=== PATIENT | female | born 1995 | race African-American/Black ===

== ENCOUNTER 2017-02-23 03:15 | Emergency (ER) | payer OTHER ==
[~2017-02-23] VITALS: Ht 177.8 cm; Wt 75.7 kg
[2017-02-23] MEDS ORDERED: ADV100INH INH (03:34)
[2017-02-23] MEDS ORDERED: ALBU17IN2 INH (03:34)
[2017-02-23] MEDS ORDERED: ONDANSETRON 4MG/2ML VIAL (J2405) IV ONE (05:15)
[2017-02-23] MEDS ORDERED: NS 1,000 ML IV ONE (05:15)
[2017-02-23 05:23] LABS: ANION GAP 9 MEQ/L (8-16); BASO % 0.4 % (0.0-1.0); BLOOD UREA NITROGEN 14 MG/DL (7-18); CALCIUM LEVEL 8.9 MG/DL (8.5-10.1); CARBON DIOXIDE LEVEL 25 MEQ/L (21-32); CHLORIDE LEVEL 110 MEQ/L (98-107); CREATININE FOR GFR 0.91 MG/DL (0.55-1.02); EOS # 0.2 K/mm3 (0.0-0.50); GLOMERULAR FILTRATION RATE > 60.0 (>60); GLUCOSE, FASTING 112 MG/DL (70-105); LARGE UNSTAINED CELL # 0.3 K/mm3 (0.0-0.4); LARGE UNSTAINED CELL % 2.9 % (0.0-4.0); LYMPH # 3.3 K/mm3 (1.5-6.5); LYMPH % 35.6 % (24.0-44.0); MEAN CORPUSCULAR HEMOGLOBIN 30.1 pg (27.0-33.0); MONO # 0.5 K/mm3 (0.0-0.8); MONO % 6.2 % (0.0-5.0); NEUTROPHILS # 4.6 K/mm3 (1.8-7.7); NEUTROPHILS % 52.9 % (36.0-66.0); PLATELET COUNT, AUTOMATED 287 k/mm3 (150-450); POTASSIUM SERUM 3.8 MEQ/L (3.5-5.1); RED CELL DISTRIBUTION WIDTH 12.1 % (11.5-14.5); SODIUM LEVEL 144 MEQ/L (136-145); WHITE BLOOD COUNT 8.6 K/mm3 (4.0-10.0)
[2017-02-23 08:19] VITALS: BP 107/59
--- NOTE | 2017-02-23 10:31 | REP ---
AP PORTABLE SEATED CHEST: 02/23/2017. Clinical history: Dyspnea. Findings: There were no prior studies. The lung meza are adequately inflated. The CP angles sharply defined without effusion. There is no definite infiltrate. The cardiomediastinal silhouette is normal for projection. There is no pulmonary edema or definite infiltrate. No pneumothorax or pneumomediastinum. The aorta, airway and mediastinal contours are normal. Bones intact. Impression: 1. No acute cardiopulmonary change. Signed by Alejo Tamayo MD 02/23/2017 10:56 A
== END 2017-02-23 08:24 | disposition home or self-care (01) ==
LOC: M ED 07:49
DX: J45.20 Mild intermittent asthma, uncomplicated (principal); F10.120 Alcohol abuse with intoxication, uncomplicated; Z79.899 Other long term (current) drug therapy
CPT/HCPCS: 36415; 71010; 80048; 85025; 96361; 96374; 99282; G0480; J2405

== ENCOUNTER → 2017-04-30 | Outpatient (REF) | payer OTHER ==
[~2017-04-30] MED LIST: ADV100INH INH; ALBU17IN2 INH
[2017-05-10 08:07] LABS: D001-IgE D pteronyssinus <0.10 kU/L (Class 0); E001-IgE Cat Epith/Dander < 0.10 kU/L (Class 0); M001-IgE Penicillium chrysogen < 0.10 kU/L (Class 0); M002 IgE Cladosporium herbaru < 0.10 kU/L (Class 0); M003 IgE Aspergillus fumigatu < 0.10 kU/L (Class 0); M006-IgE Alternaria alternata < 0.10 kU/L (Class 0); T003-IgE Common Silver Birch 0.85 kU/L (Class II); T007-IgE Oak, White 1.11 kU/L (Class II); T008-IgE Elm, American 1.22 kU/L (Class II); W001-IgE Ragweed, Short 1.31 kU/L (Class II); W009-IgE Plantain, English 1.41 kU/L (Class III); W014-IgE Pigweed, Rough 1.12 kU/L (Class II); W018-IgE Sheep Sorrel 1.92 kU/L (Class III)
== END ==
LOC: M LAB REF 13:34
PROVIDERS: ATTEND Nurse Practitioner Adult Health
DX: J45.40 Moderate persistent asthma, uncomplicated (principal)

== ENCOUNTER → 2017-06-20 | Outpatient (CLI) | payer OTHER ==
[~2017-06-20] MED LIST changes: +CONRAY-43 43% 50ML VIAL (Q9960) As Ordered ONE; +FLAG500T PO; +IBUP1TAB7 PO
--- NOTE | 2017-06-20 10:38 | REP ---
MRI RIGHT HIP WITHOUT AND WITH CONTRAST: 06/20/2017 CLINICAL HISTORY: Chronic bilateral hip pain with negative nuclear study and response to conservative therapy. Anterior pain. This is seems to be localized to the acetabulum. TECHNIQUE: Precontrast whole pelvic T1 and T2 STIR coronal images. Following gadolinium arthrogram injection by ROYAL Fernandez, post-gadolinium coronal and axial fat-suppressed T1 and T2 sequences with sagittal fat suppressed T1 and axial oblique fat-suppressed T1 sequence also performed. Marrow signal in the lower lumbar spine, visualized portions of the sacrum, iliac bones, ischia, and acetabuli symmetric and grossly intact. Likewise, hip bone marrow signal symmetric and normal as well into the proximal femoral shafts. The intrinsic and extrinsic pelvic hip, buttocks, and proximal thigh musculature along with paraspinal musculature visible was unremarkable. Bladder partially filled without mass. Uterus anteverted. There is no hip joint effusion. I do not see any significant tendinobursitis about the greater trochanters. The iliopsoas, obturator internus, and hamstring tendon insertions about the hip were all unremarkable. Contrast arthrogram images; There is undermining of the superior labrum central to anterior, consistent with a superior labral tear. I do not see a loose body. There were no other significant findings. There is no cam-type deformity for femoroacetabular impingement. IMPRESSION: 1. Evidence of superior labral tear from central to anterior aspect of the superior labrum on the contrast arthrogram study. No loose body, joint effusion, trochanteric tendinobursitis or other acute finding about the hip. Signed by Alejo Tamayo MD 06/20/2017 10:15 P
--- NOTE | 2017-06-20 22:18 | REP ---
Right hip arthrogram The procedure was performed under the direction supervision of Dr. Tamayo. The benefits and risks including but not limited to pain, infection, bleeding and anaphylaxis were explained to the patient and informed consent was obtained. The right femoral neck was localized using fluoroscopic guidance. Skin was prepped and draped in a sterile fashion. 1% lidocaine was used as a local anesthetic. Using fluoroscopic guidance a 22 gauge spinal needle was inserted and advanced to the femoral neck. 0.5 ml of Conray 43 was injected to verify placement. 11 ml of a solution containing 20 ml of sterile saline and 0.15 ml of ProHance was injected into the joint. The needle was removed and the patient was taken to MRI for postprocedural imaging. The the patient tolerated the procedure well and there were no immediate complications. 1 second of fluoro time was utilized for this procedure. Reviewed by ROYAL Gómez 06/20/2017 12:25 PSigned by Alejo Tamayo MD 06/20/2017 10:08 P
== END ==
LOC: M RADPRO 06:54
PROVIDERS: ATTEND Physician Assistant
DX: M24.151 Other articular cartilage disorders, right hip (principal)
CPT/HCPCS: 27093; 73723; 77002; A9576; Q9960

== ENCOUNTER → 2017-06-23 | Outpatient (CLI) | payer OTHER ==
--- NOTE | 2017-06-23 09:42 | REP ---
MR ARTHROGRAM LEFT HIP: TECHNIQUE: Coronal T1, STIR through the pelvis, T2 fat sat, left hip all three planes, axial oblique proton density fat sat left hip. The visualized osseous structures demonstrate ill-defined high signal in the pubis bilaterally, along the pubic symphysis, compatible with stress related changes. No other occult fracture is seen. There is no evidence of avascular necrosis. Superior labrum of the left hip is blunted diffusely which could represent a normal variant versus prior tear. There is no other evidence of a labral tear. There is no paralabral cyst. There is no joint effusion. Other surrounding soft tissue structures are unremarkable with no abnormal signal. There is no evidence of left sided tendinobursitis. The visualized intrapelvic structures are unremarkable. IMPRESSION: Ill-defined high signal edema in the pubis bilaterally likely represents stress related changes along the pubic symphysis. Blunting of the superior left hip labrum may represent a normal variant versus prior tear. Signed by Harry Patel MD 06/24/2017 08:37 A
--- NOTE | 2017-06-23 13:30 | REP ---
LEFT HIP ARTHROGRAM: Procedure is performed by ROYAL Johns, under the direct supervision of Dr. Patel. The procedure along with its risks, benefits and complications were discussed with the patient prior to the procedure. Informed consent was obtained both verbally and written. The left femoral neck was localized using fluoroscopic guidance. The skin was prepped and draped in the usual sterile fashion. A procedural "time out" was performed to ensure that the correct patient, procedure and site were being performed. 1% lidocaine was used as local anesthetic. Using fluoroscopic guidance, a 22-gauge spinal needle was inserted and advanced to the femoral neck. 0.5 mL of Conray 60 was injected to verify placement. 11 mL of a solution containing 19 mL of saline and 0.15 ml of ProHance was injected into the joint space. The needle was then removed. The patient tolerated the procedure well and there were no immediate complications. Fluoroscopy time was 8 seconds. Reviewed by ROYAL Choi 06/23/2017 03:22 PEdited and Signed by Harry Patel MD 06/24/2017 08:34 A
== END ==
LOC: M RADPRO 06:56
PROVIDERS: ATTEND Physician Assistant
DX: M25.552 Pain in left hip (principal)
CPT/HCPCS: 27093; 73723; 77002; A9576; Q9960

== ENCOUNTER 2017-07-08 19:36 | Emergency (ER) | payer OTHER ==
[~2017-07-08] VITALS: Ht 177.8 cm; Wt 73.6 kg
[~2017-07-08 19:36] MED LIST changes: -CONRAY-43 43% 50ML VIAL (Q9960) As Ordered ONE; -FLAG500T PO; -IBUP1TAB7 PO
[2017-07-08] MEDS ORDERED: NORCO, ANEXSIA 5/325MG TABLET (HYDROcodone/ACETAMINOPHEN) PO ONE (21:15)
--- NOTE | 2017-07-08 21:50 | REPUSA ---
CT of the lumbar spine without contrast Clinical history: Pain. Technique: Multiple axial CT images were obtained through the lumbar spine without administration of contrast. Coronal and sagittal 3-D reconstructed images were also obtained. Findings: The lumbar vertebral bodies are in satisfactory positioning and alignment. No fractures or dislocatio ns are demonstrated. Intervertebral disc spaces are well-maintained. There is no evidence of facet weaver bluxation. The neural foramen appear grossly patent. The spinal canal demonstrates normal caliber and contour without evidence of spinal stenosis. The surrounding soft tissues are within normal limits. Impression: Unremarkable CT examination of the lumbar spine.
[2017-07-08 22:11] VITALS: BP 131/66
== END 2017-07-08 22:15 | disposition home or self-care (01) ==
LOC: M ED 19:36
DX: G89.29 Other chronic pain (principal); M25.551 Pain in right hip; M25.552 Pain in left hip; J45.909 Unspecified asthma, uncomplicated; Z79.899 Other long term (current) drug therapy

== ENCOUNTER 2017-09-24 19:10 | Emergency (ER) | payer OTHER ==
[~2017-09-24] VITALS: Ht 177.8 cm; Wt 79.2 kg
[2017-09-24] MEDS ORDERED: IBUP1TAB7 PO (19:43)
[2017-09-24] MEDS ORDERED: NS 1,000 ML IV ONE (22:15)
[2017-09-24] MEDS ORDERED: MORPHINE 2 MG/ML 1ML SYRINGE IV PRN (22:15)
[2017-09-24] MEDS ORDERED: ONDANSETRON 4MG/2ML VIAL (J2405) IV ONE (22:15)
[2017-09-24 22:39] LABS: BASO % 0.3 % (0.0-1.0); EOS # 0.2 10^3/uL (0.0-0.50); EOS % 3.1 % (0.0-3.0); IMMATURE GRANULOCYTE % 0.1 % (0-0); LYMPH # 3.5 10^3/uL (1.5-6.5); LYMPH % 50.3 % (24.0-44.0); MEAN CORPUSCULAR HEMOGLOBIN 30.4 pg (27.0-33.0); MEAN CORPUSCULAR HGB CONC 33.2 g/dl (32.0-36.5); MEAN CORPUSCULAR VOLUME 91.3 fl (80.0-96.0); MONO # 0.6 10^3/uL (0.0-0.8); MONO % 7.8 % (0.0-5.0); NEUTROPHILS # 2.7 10^3/uL (1.8-7.7); NEUTROPHILS % 38.4 % (36.0-66.0); PLATELET COUNT, AUTOMATED 269 10^3/uL (150-450); RED CELL DISTRIBUTION WIDTH 11.9 % (11.5-14.5)
[2017-09-24 22:59] LABS: ALBUMIN 4.2 GM/DL (3.2-5.2); ALKALINE PHOSPHATASE 56 U/L (45-117); ALT/SGPT 19 U/L (12-78); ANION GAP 5 MEQ/L (8-16); AST/SGOT 22 U/L (7-37); BILIRUBIN,DIRECT 0.1 MG/DL (0.0-0.2); BILIRUBIN,TOTAL 0.3 MG/DL (0.2-1.0); BLOOD UREA NITROGEN 15 MG/DL (7-18); CARBON DIOXIDE LEVEL 30 MEQ/L (21-32); CHLORIDE LEVEL 106 MEQ/L (98-107); CREATININE FOR GFR 0.86 MG/DL (0.55-1.02); GLOMERULAR FILTRATION RATE > 60.0 (>60); GLUCOSE, FASTING 85 MG/DL (70-105); POTASSIUM SERUM 4.1 MEQ/L (3.5-5.1); SODIUM LEVEL 141 MEQ/L (136-145); TOTAL PROTEIN 7.2 GM/DL (6.4-8.2)
--- NOTE | 2017-09-24 23:20 | REPUSA ---
Clinical history: Pain. Vaginal bleeding. Findings: Real-time transabdominal and transvaginal ultrasound images of the pelvis were obtained. An anteverted uterus is noted, measuring 8.9 x 6.2 x 6.9 cm. The uterus demonstrates normal echotexture and echogenicity. The endometrial stripe measures 7 mm and is within normal limits. The right ovary measures 4.9 x 2.6 x 2.5 cm. The left ovary measures 5.0 x 2.8 x 1.7 cm. No adnexal masses are seen. Color Doppler flow is seen within both ovaries. There is trace free fluid. Impression: Unremarkable ultrasound examination of the pelvis.
[2017-09-25] MEDS ORDERED: FLAG500T PO (00:20)
[2017-09-25 00:42] VITALS: BP 128/75
--- NOTE | 2017-09-25 08:00 | ECGEPIP ---
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
== END 2017-09-25 00:44 | disposition home or self-care (01) ==
LOC: M ED 19:10
DX: N76.0 Acute vaginitis (principal); R00.1 Bradycardia, unspecified; J45.909 Unspecified asthma, uncomplicated; Z79.51 Long term (current) use of inhaled steroids; Z92.0 Personal history of contraception
CPT/HCPCS: 76830; 76856; 80048; 80076; 81001; 81025; 83690; 85025; 87210; 87491; 87591; 93005; 93976; 96374; 96375; 99284; J2405

== ENCOUNTER → 2018-03-21 | Outpatient (REF) | payer OTHER ==
[2018-03-21 15:36] LABS: CONTROL LINE UCG INT CTR LINE PRESENT; URINE PREG TEST NEGATIVE (NEGATIVE)
== END ==
LOC: M LAB REF 14:53
DX: N91.2 Amenorrhea, unspecified (principal)

== ENCOUNTER → 2018-04-03 | Outpatient (CLI) | payer OTHER ==
[~2018-04-03] MED LIST changes: -ADV100INH INH; -ALBU17IN2 INH; +CONRAY-43 43% 50ML VIAL (Q9960) As Ordered; +LIDOCAINE 1% MDV 20ML VIAL As Ordered; +TRIAMCINOLONE ACETONIDE SUSP 40 MG/ML VIAL (J3301) As Ordered
== END ==
LOC: M RADPRO 10:46
DX: S73.191A Other sprain of right hip, initial encounter (principal); Y92.89 Other specified places as the place of occurrence of the external cause; Y93.89 Activity, other specified; X58.XXXA Exposure to other specified factors, initial encounter; Y99.8 Other external cause status
CPT/HCPCS: 20610